=== PATIENT | female | born 1985 | race Caucasian/White ===

== ENCOUNTER 2019-04-04 07:42 | Emergency (ER) | payer SELFPAY ==
[~2019-04-04] VITALS: Ht 175.3 cm; Wt 161.0 kg
[~2019-04-04 07:42] MED LIST: ACID REDUCER20 MG OR; BACTRIM DS1 TAB OR; BACTRIM DS1 TAB PO; CIPRO500 MG OR; FIORICET PO; FLEXERIL PO; FLEXERIL5 MG PO; LORTAB 5 OR; NAPROSYN500 MG PO; NO CURRENT MEDS; PYRIDIUM200 MG OR; TIZANIDINE HCL6 MG PO; TYLENOL EXT500 MG/RR PO; ZOFRAN ODT4 MG PO
[2019-04-04 08:29] LABS: HEMATOCRIT 40.7 % (37.0-47.0); HEMOGLOBIN 13.1 g/dl (12.0-16.0); IMMATURE GRANULOCYTES 0.6 % (0.0-5.0); MEAN CELL VOLUME 90.2 fL CALC (80.0-100.0); MEAN CORPUSCULAR HGB CONC 32.2 g/L CALC (32.0-36.0); NEUT# 5.9 thou/uL (2.00-7.15); RED BLOOD COUNT 4.51 mill/uL (4.20-5.60); RED CELL DISTRI WIDTH 12.3 % (11.5-15.5)
[2019-04-04 08:30] LABS: URINE BILIRUBIN - DIPSTICK NEGATIVE (NEGATIVE); URINE BLOOD DIPSTICK NEGATIVE (NEGATIVE); URINE COLOR YELLOW; URINE GLUCOSE - DIPSTICK NEGATIVE (NEGATIVE); URINE KETONE NEGATIVE (NEGATIVE); URINE LEUK ESTERASE NEGATIVE (NEGATIVE); URINE NITRITE - DIPSTICK NEGATIVE (Negative); URINE PH 5.5 (4.5-8.0); URINE PROTEIN - DIPSTICK NEGATIVE (NEG-TRACE); URINE SPECIFIC GRAVITY >=1.030; URINE UROBILINOGEN - DIPSTICK 0.2 E.U./dL (0.2)
[2019-04-04 08:39] LABS: BARBITURATES NEGATIVE (NEGATIVE); COCAINE NEGATIVE (NEGATIVE); METHADONE NEGATIVE (NEGATIVE); OXCYCODONE NEGATIVE (NEGATIVE); TETRAHYDROCANNABIONOL NEGATIVE (NEGATIVE); TRICYLIC ANTIDEPRESSANTS NEGATIVE (NEGATIVE)
[2019-04-04 08:39] LABS: ALBUMIN 4.4 g/dL (3.2-5.0); ALKALINE PHOSPHATASE 78 u/l (38-126); ANION GAP 14 (6-22 (CALC)); BILIRUBIN, TOTAL 0.3 mg/dL (0.0-1.4); BUN 16 mg/dL (7-17); BUN/CREATININE RATIO 23 (12-20 (CALC)); CARBON DIOXIDE 24 mmol/l (22-30); CHLORIDE 106 mmol/l (95-108); CREATININE 0.7 mg/dL (0.5-1.0); GFR > 60 ML/MIN (>=60 (CALC)); GFR FOR AFR.AMER. > 60 ML/MIN (>=60 (CALC)); SGOT/AST 48 u/l (14-36); SODIUM 139 mmol/l (137-146); TOTAL PROTEIN 7.4 g/dL (6.3-8.2)
[2019-04-04] MEDS ORDERED: BENTYL10 MG PO (09:46)
[2019-04-04] MEDS ORDERED: ONDANSETRON4 MG PO (09:46)
[2019-04-04 10:20] VITALS: BP 116/70
== END 2019-04-04 10:20 | disposition home or self-care (01) | DRG 392 ==
LOC: ED 07:42
PROVIDERS: Emergency Medicine
DX: K52.9 Noninfective gastroenteritis and colitis, unspecified (principal)

== ENCOUNTER 2024-11-21 08:38 | Emergency (ER) | payer SELFPAY ==
[~2024-11-21] VITALS: Ht 175.3 cm; Wt 149.0 kg
[~2024-11-21 08:38] MED LIST changes: +BENTYL10 MG PO; +ONDANSETRON4 MG PO
[2024-11-21 08:46] VITALS: BP 119/72
[2024-11-21] MEDS ORDERED: POVIDONE IODINE 0.5 OZ/BTL TOP STA (08:50)
[2024-11-21] MEDS ORDERED: LIDOcaine HCl 1% (Local Anesth.) 20 ML VIAL STI STA (08:50)
[2024-11-21 09:01] VITALS: BP 110/44
[2024-11-21] MEDS ORDERED: BACTRIM DS1 TAB PO (09:28)
[2024-11-21] MEDS ORDERED: CEPHALEXIN500 M1 PO (09:28)
[2024-11-21] MEDS ORDERED: NAPROXEN500 MG PO (09:33)
[2024-11-21 09:51] VITALS: BP 114/66
== END 2024-11-21 09:52 | disposition home or self-care (01) | DRG 603 ==
LOC: ED 08:38
DX: L02.213 Cutaneous abscess of chest wall (principal)